=== PATIENT | female | born 1990 | race Caucasian/White ===

== ENCOUNTER 2020-01-14 11:43 | Emergency (ER) | payer OTHER, SELFPAY ==
[2020-01-14 11:50] VITALS: BP 112/84; PULSE 124; RESP 16; TEMP 38.8; O2SAT 100
--- NOTE | 2020-01-14 12:28 | ED.GENADULT ---
HPI - General Adult General Chief complaint: Upper Respiratory Infection Stated complaint: fever/swollen glands/sore throat Time Seen by Provider: 01/14/20 12:28 Source: patient and RN notes reviewed Mode of arrival: ambulatory Limitations: no limitations History of Present Illness HPI narrative: 29-year-old female presents with complaints of sore throat and fever for 1 day. Tylenol pm, last on 01/13/20 without relief. Highest fever 100.3 Fahrenheit, orally. No drooling, neck or throat swelling. Pain is bilateral. Hurts to swallow. Exacerbation factors consist of eating and drinking. No rhinorrhea or nasal congestion. No voice change. No nausea, vomiting, or abdominal pain. Tolerating liquids well. Denies chills, dyspnea, difficulty swallowing, jaw pain, dental pain, facial pain, foreign body sensation, and rash. LMP 1.5 weeks ago. Remains active. The patient reports she have not been diagnosed with COVID-19. The patient reports she is not waiting for the results of a COVID-19 lab test. The patient reports she do not have chills, weakness, or fatigue. The patient reports she do not have a new or worsening cough or shortness of breath. Denies chest pain. The patient reports she do not have any loss of taste, nausea, vomiting, abdominal pain, and diarrhea. Tolerating po intake well. Denies recent traveling. Denies concerns for COVID-19 or exposures been home with limited outdoor exposure except for essential household needs, work, and return home. At this time, patient is suspected of having COVID-19. Some parts of this dictation were generated by voice recognition software and may contain typographical and/or grammatical inaccuracies. Related Data Allergies Allergy/AdvReac Type Severity Reaction Status Date / Time morphine Allergy Intermediate Itching Verified 01/14/20 13:48 hydrocodone Allergy Unknown Nausea and Verified 01/14/20 13:48 Vomiting pertussis vaccine,adsorbed Allergy Unknown SWELLING Verified 01/14/20 13:48 WARM KNOT codeine AdvReac Mild VOMITING Verified 01/14/20 13:48 Review of Systems Review of Systems: Narrative: CONSTITUTIONAL: Complains of fever. Denies chills, sweats. EYES: Denies visual changes, redness, discharge. ENT: Denies congestion, rhinorrhea, otalgia. Complains of sore throat. CARDIOVASCULAR: Denies chest pain, palpitations, edema. RESPIRATORY: Denies dyspnea, wheezing, cough. GASTROINTESTINAL: Denies abdominal pain, nausea, vomiting, diarrhea. GENITOURINARY: Denies dysuria, hematuria, abnormal discharge. SKIN: Denies rash or itching. MUSCULOSKELETAL: Denies acute back pain, joint pain, or myalgia. NEUROLOGIC: Denies numbness or focal weakness. PSYCHIATRIC: Denies anxiety or depression. All systems reviewed & are unremarkable except as noted in HPI and below. [facility] Past Medical History Medical History (Updated 01/14/20 @ 12:43 by RUPERT Costa) Anxiety delivery delivered Morbid obesity Surgical History Surgical History (Updated 01/14/20 @ 12:42 by RUPERT Costa) H/O section X5 last February 2018 History of dilation and curettage History of tonsillectomy and adenoidectomy Family History Family History Father Emphysema of lung Heart abnormality Diabetes mellitus Hypertension Grandparent Cerebrovascular accident Social History Social History (Updated 01/14/20 @ 12:43 by RUPERT Costa) Smoking status: Never smoker Tobacco type: cigarettes Second hand tobacco smoke exposure: No (Harvinder reports family goes outside to smoke) Alcohol intake: current Substance use: never Gender identity (if verbalized by the patient): Female Spiritual care concerns: No Comments At time of signature, agree with nurse past medical, surgical, social, and family history. There is no relevant family history pertinent to the presenting complaint. Exam
[2020-01-14 13:00] VITALS: PULSE 108; TEMP 38.8
[2020-01-14] MEDS: IBUPROFEN 400 MG TABLET 800 MG PO (13:00)
[2020-01-14] MEDS: ACETAMINOPHEN 500 MG TABLET 1000 MG PO (13:00)
== END 2020-01-14 13:05 | disposition home or self-care (01) ==
PROVIDERS: Emergency Provider Nurse Practitioner Family
DX: B34.9 Viral infection, unspecified (principal); J02.0 Streptococcal pharyngitis; Z20.828 Contact with and (suspected) exposure to other viral communicable diseases; F41.9 Anxiety disorder, unspecified; E66.01 Morbid (severe) obesity due to excess calories; Z68.35 Body mass index [BMI] 35.0-35.9, adult
CPT/HCPCS: 87081; 87147; 87804; 87880; 99213; A9270; G0463

== ENCOUNTER 2020-01-14 12:53 | Outpatient (NON) | payer OTHER, SELFPAY ==
[2020-01-16 13:10] LABS: SARS-CoV-2 RNA PCR Negative
== END 2020-01-14 12:54 ==
LOC: ANHCOVIDDT 12:55
PROVIDERS: Visit Provider Nurse Practitioner Family
DX: R68.89 Other general symptoms and signs (principal); Z20.828 Contact with and (suspected) exposure to other viral communicable diseases
CPT/HCPCS: 87635; C9803; U0003

== ENCOUNTER 2020-03-11 16:14 | Emergency (ER) | payer OTHER, SELFPAY ==
[2020-03-11 16:19] VITALS: BP 140/100; PULSE 85; RESP 16; TEMP 36.9; O2SAT 100
--- NOTE | 2020-03-11 16:21 | ED.SKABFB ---
HPI - Skin/Abscess/Foreign Bdy General Chief complaint: Dental/Oral Stated complaint: pos skin abcess Time Seen by Provider: 03/11/20 16:21 Source: patient and RN notes reviewed Mode of arrival: ambulatory Limitations: no limitations History of Present Illness HPI narrative: 29 year old female who presents to [facility] care with complaints of dental pain with swelling to the left side of her lower jaw with pain.Patient has multiple areas of decay noted to her teeth with numerous broken teeth and some missing. Patient has swelling and redness of her gums around back left lower molars, #19 and #20 with left lower jaw swollen and painful. Patient states that she does not have a dentist and expresses fear of dentist with poor dental care noted. Patient denies any difficulty swallowing or breathing with no Jimmy angina noted or trismus. She reports taking Ibuprofen regularly with minimal pain decrease voiced. MD complaint: other (dental pain, dental caries #19 and #20 with facial swelling) Onset (ago): day(s) (2) Tetanus up to date: yes Location: face (left jaw) Severity: severe Severity scale (1-10): 8 Quality: aching Pain Consistency: constant Relieving factors: none Exacerbating factors: other (eating) Treatments prior to arrival: NSAID Related Data Allergies Allergy/AdvReac Type Severity Reaction Status Date / Time morphine Allergy Intermediate Itching Verified 01/14/20 13:48 hydrocodone Allergy Unknown Nausea and Verified 01/14/20 13:48 Vomiting pertussis vaccine,adsorbed Allergy Unknown SWELLING Verified 01/14/20 13:48 WARM KNOT codeine AdvReac Mild VOMITING Verified 01/14/20 13:48 Review of Systems Review of Systems: Narrative: CONSTITUTIONAL: Denies fever, chills, or sweats. EYES: Denies visual changes, redness, or discharge. ENT: Denies rhinorrhea, congestion, sore throat, or otalgia, dental pain with swollen gum around #19 an #20 molars left facial swelling CARDIOVASCULAR: Denies chest pain, palpitations, or edema. RESPIRATORY: Denies cough or dyspnea. GASTROINTESTINAL: Denies abdominal pain, nausea, vomiting, or diarrhea. GENITOURINARY: Denies dysuria or hematuria. SKIN: Denies rash or itching. MUSCULOSKELETAL: Denies back pain, joint pain, or myalgia. NEUROLOGIC: Denies headache, numbness, or weakness. PSYCHIATRIC: Denies anxiety or depression. All systems reviewed & are unremarkable except as noted in HPI and below PMFSH Past Medical History Medical History (Updated 03/13/20 @ 08:56 by Caty Henry NP) Anxiety delivery delivered Dental caries Morbid obesity Surgical History Surgical History H/O section X5 last February 2018 History of dilation and curettage History of tonsillectomy and adenoidectomy Family History Family History Father Emphysema of lung Heart abnormality Diabetes mellitus Hypertension Grandparent Cerebrovascular accident Social History Social History Smoking status: Never smoker Tobacco type: cigarettes Second hand tobacco smoke exposure: No (Harvinder reports family goes outside to smoke) Alcohol intake: current Substance use: never Gender identity (if verbalized by the patient): Female Spiritual care concerns: No Comments At time of signature, agree with nursing past medical, surgical, social and family history. There is no relevant family history pertinent to the presenting complaint Exam Narrative: Exam Narrative: GENERAL: Well-appearing, well-nourished,obese, and in mild distress. HEAD: Normocephalic, atraumatic. EYES: PERRLA and EOMI. ENT: Nares clear, no rhinorrhea or epistaxis. Mucous membranes moist.TM's normal with good light reflex, throat pink with no lesions or exudates, left jaw and lower face swollen and tender. No difficulty with swallowing or with her breath
== END 2020-03-11 16:51 | disposition home or self-care (01) ==
PROVIDERS: Emergency Provider Registered Nurse
DX: K04.7 Periapical abscess without sinus (principal); K02.9 Dental caries, unspecified; E66.01 Morbid (severe) obesity due to excess calories; Z68.42 Body mass index [BMI] 45.0-49.9, adult
CPT/HCPCS: 99213; G0463

== ENCOUNTER 2020-09-04 15:23 | Emergency (ER) | payer OTHER, SELFPAY ==
[2020-09-04 15:33] VITALS: BP 118/82; PULSE 102; RESP 16; TEMP 37.1; O2SAT 100
--- NOTE | 2020-09-04 16:10 | ED.PEDHENT ---
HPI - Pediatric HENT General Chief complaint: Ear Stated complaint: sore throat Source: patient and RN notes reviewed Limitations: no limitations History of Present Illness HPI Narrative: The obese patient, previously mostly healthy, presents with half week history of scratchy sore throat, minimal nasal congestion; Coworkers are ill with strep. She denies fever, cough, earache; no Covid vaccine, loss of taste/smell, CP, calf pain/edema, S OB, vomiting/diarrhea. Symptoms are mild, worse upon eating Related Data Allergies Allergy/AdvReac Type Severity Reaction Status Date / Time morphine Allergy Intermediate Itching Verified 01/14/20 13:48 hydrocodone Allergy Unknown Nausea and Verified 01/14/20 13:48 Vomiting pertussis vaccine,adsorbed Allergy Unknown SWELLING Verified 01/14/20 13:48 WARM KNOT codeine AdvReac Mild VOMITING Verified 01/14/20 13:48 Pediatric Review of Systems Review of Systems: General/Constitutional: No weight loss,fever Eyes: N0: Redness,discharge Ears/Nose/Throat: No: Epistaxis,ear discharge Respiratory: Denies: Hemoptysis Gastrointestinal: No Vomiting, Bleeding-rectal Skin: No Lumps, eruption Neurologic: No Focal Weakness,Sz Hematologic: Denies: Petechiae/Purpura Psychiatric: No: Suicida ideationl All Other Systems: Reviewed and Negative [facility] Past Medical History Medical History (Updated 09/04/20 @ 17:42 by Josue Garcia MD) Anxiety delivery delivered Dental caries Morbid obesity Surgical History Surgical History H/O section X5 last February 2018 History of dilation and curettage History of tonsillectomy and adenoidectomy Family History Family History Father Emphysema of lung Heart abnormality Diabetes mellitus Hypertension Grandparent Cerebrovascular accident Social History Social History Smoking status: Never smoker Tobacco type: cigarettes Second hand tobacco smoke exposure: No (Harvinder reports family goes outside to smoke) Alcohol intake: current Substance use: never Gender identity (if verbalized by the patient): Female Spiritual care concerns: No Comments At time of signature, agree with nursing past medical, surgical, social and family history. There is no relevant family history pertinent to the presenting complaint Pediatric Exam Narrative: Physical exam: General Appearance: Obese/well nourished EYE: PERRLA, Conjunctiva clear Ears: Auditory canal normal, TM normal Nose: Rhinorrhea, Mucousal erythema Mouth/Throat: MM moist, Uvula midline, Pharyngeal erythema Neck: Supple, No adenopathy Respiratory: No respiratory distress, Breath sounds equal, Clear to auscultation Cardiovascular: RRR, No JVD Musculoskeletal: Non tender, Normal strength Skin: Warm, Dry Neurological: A&O x3, CN II-XII intact Psychiatric: Normal mood, Normal affect Course Vital Signs Vital signs: Vital Signs Temperature 98.7 F 09/04/20 15:33 Pulse Rate 102 H 09/04/20 15:33 Respiratory Rate 16 09/04/20 15:33 Blood Pressure 118/82 09/04/20 15:33 Pulse Oximetry 100 09/04/20 15:33 Temperature 98.7 F 09/04/20 15:33 Pulse Rate 102 H 09/04/20 15:33 Respiratory Rate 16 09/04/20 15:33 Blood Pressure 118/82 09/04/20 15:33 Pulse Oximetry 100 09/04/20 15:33 Medical Decision Making Vital Signs Vital Signs: Vital Signs Temperature 98.7 F 09/04/20 15:33 Pulse Rate 102 H 09/04/20 15:33 Respiratory Rate 16 09/04/20 15:33 Blood Pressure 118/82 09/04/20 15:33 Pulse Oximetry 100 09/04/20 15:33 Temperature 98.7 F 09/04/20 15:33 Pulse Rate 102 H 09/04/20 15:33 Respiratory Rate 16 09/04/20 15:33 Blood Pressure 118/82 09/04/20 15:33 Pulse Oximetry 100 09/04/20 15:33 Lab Data Labs: Strep Screen
== END 2020-09-04 16:17 | disposition home or self-care (01) ==
PROVIDERS: Emergency Provider Emergency Medicine
DX: R09.81 Nasal congestion (principal); J06.9 Acute upper respiratory infection, unspecified; E66.01 Morbid (severe) obesity due to excess calories; Z68.43 Body mass index [BMI] 50.0-59.9, adult
CPT/HCPCS: 87081; 87880; 99213; G0463

== ENCOUNTER → 2020-09-09 06:52 | Outpatient (CLI) | payer OTHER, SELFPAY ==
[2020-09-09 17:38] LABS: SARS-CoV-2 RNA PCR Negative
== END ==
PROVIDERS: Visit Provider Emergency Medicine
DX: J02.9 Acute pharyngitis, unspecified (principal); Z20.822 Contact with and (suspected) exposure to COVID-19
CPT/HCPCS: C9803; U0003; U0005

== ENCOUNTER 2024-09-06 13:20 | Emergency (ER) | payer MEDICAID, SELFPAY ==
--- NOTE | ~2024-09-06 | XR_ITS ---
CHEST RADIOGRAPH, PA AND LATERAL CLINICAL HISTORY: palpitations; SOB; chest pain, DIZZINESS . COMPARISON: 11/20/2018 TECHNIQUE: PA and lateral views of the chest. FINDINGS The cardiomediastinal silhouette is unremarkable. The lungs are clear. IMPRESSION: No focal infiltrate or effusion. Reviewed, dictated and finalized at location A.
[2024-09-06 13:22] VITALS: BP 150/93; PULSE 103; RESP 20; TEMP 36.6; O2SAT 100
--- NOTE | 2024-09-06 13:23 | ECG_ITS ---
Test Date: 2024-09-06 13:27:17 Measurements Intervals [place] Rate: 100 P: 39 FL: 138 QRS: 20 QRSD: 90 T: 29 QT: 344 QTc: 445 Interpretive Statements SINUS TACHYCARDIA ABNORMAL RHYTHM ECG No previous ECG available for comparison Electronically Signed On 09-06-2024 13:38:53 CDT by Nicko Cooper M.D.
--- OUTSIDE RECORDS SUMMARY | 2024-09-06 13:28 | XMS_ITS | Clinical Summary ---
Author Organization [facility] Address [address] [place] [address] Phone Care Team Providers Care Chipper Machine Operator Name Role Phone Lyssa Alex APRN Primary Care Provider Social History Tobacco Use Types Packs/Day Years Used Date Smoking Tobacco: Never Assessed Comments Unknown Sex and Gender Information Value Date Recorded Sex Assigned at Not on file Legal Sex Female 3:09 PM [employer] Gender Identity Not on file Sexual Orientation Not on file Plan of Treatment Health Maintenance Due Date Last Done Comments Hepatitis C Virus (HCV) Screening 1989 TdaP Immunization 1989 Hepatitis B Immunization (1 of 3 - 19+ 3-dose series) 2008 Pap Smear 2010 Cervical Cancer Screening (CCS) 08/06/2019 HPV/Cotest 08/06/2019 Influenza Immunization (#1) 2023 SARS-COV-2 Immunization ( season) 2023 Respiratory Syncytial Virus (RSV) Immunization (Adult) (1 - 1-dose 75+ series) 2064 Meningococcal Immunization (ACWY) Aged Out No longer eligible based on patient's age to complete this topic Pneumococcal Immunization Combined Aged Out No longer eligible based on patient's age to complete this topic Rotavirus Immunization Aged Out No lo nger eligible based on patient's age to complete this topic Care Teams Chipper Machine Operator Relationship Specialty Start Date End Date Lyssa Alex APRN [address] [place] [address] PCP - General Family Medicine 04/19/17
--- NOTE | 2024-09-06 13:38 | ED.ARRPALP ---
HPI - Arrhythmia/Palpitations General Chief Complaint: Arrhythmia/Palpitations Stated Complaint: palpitations Time Seen by Provider: 09/06/24 17:07 Focused HPI: 34-year-old female presents to the emergency department for palpitations that started prior to arrival. Patient states she was sitting down when she began feeling fluttering in her chest and lightheaded. She states she has had this happen before but normally her symptoms improve after splashing cold water on her face and sitting in front of a fan, however they did not improve so she came to the ED. She states she is having residual ?brain fog?, weakness and pain to the left side of her chest but feels that the fluttering has largely resolved. She denies lower extremity edema, history of arrhythmia, family history of sudden cardiac , abdominal pain, shortness of breath, cough or congestion, history of VTE, hemoptysis, recent surgeries or hospitalizations. She states she has brought this up her PCP previously but was told it was anxiety. GENERAL: Well-appearing, well-nourished, and in no acute distress. HEAD: Normocephalic, atraumatic. CHEST: Clear to auscultation. ?No respiratory distress. Tenderness to left chest wall palpation HEART: Regular rate and rhythm.? NEURO: ?Alert and oriented x3. Patient screened in triage and initial orders placed.? ?Additional care and disposition to be based upon?diagnostic testing and treatment. Related Data Allergies Allergy/AdvReac Type Severity Reaction Status Date / Time morphine Allergy Intermediate Itching Verified 09/06/24 13:21 hydrocodone Allergy Unknown Nausea and Verified 09/06/24 13:21 Vomiting pertussis vaccine,adsorbed Allergy Unknown SWELLING Verified 09/06/24 13:21 WARM KNOT codeine AdvReac Mild VOMITING Verified 09/06/24 13:21 PMFSH Past Medical History Medical History (Updated 09/07/24 @ 00:00 by Manuelito Damico) Dental caries delivery delivered Anxiety Morbid obesity Surgical History Surgical History History of dilation and curettage H/O section X5 last February 2018 History of tonsillectomy and adenoidectomy Family History Family History Father Emphysema of lung Heart abnormality Diabetes mellitus Hypertension Grandparent Cerebrovascular accident Social History Social History Smoking status: Never smoker Tobacco type: cigarettes Second hand tobacco smoke exposure: No (Harvinder reports family goes outside to smoke) Alcohol intake: current Substance use: never Living arrangements: with family Occupation/Education: occupation Gender identity (if verbalized by the patient): Female Sexual Orientation (if Verbalized by the Patient): Straight or Heterosexual Spiritual care concerns: No Course Vital Signs Vital signs: Vital Signs Temperature 97.9 F 09/06/24 13:22 Pulse Rate 103 H 09/06/24 13:22 Respiratory Rate 20 09/06/24 13:22 Blood Pressure 150/93 H 09/06/24 13:22 Pulse Oximetry 100 09/06/24 13:22 Oxygen Delivery Room Air 09/06/24 13:22 Temperature 97.8 F 09/06/24 19:44 Pulse Rate 89 09/06/24 19:44 Respiratory Rate 17 09/06/24 19:44 Blood Pressure 122/68 09/06/24 19:44 Pulse Oximetry 99 09/06/24 19:44 Oxygen Delivery Room Air 09/06/24 13:22 MDM - Arrhythmia/Palpitations Lab Data 09/06/24 13:34 09/06/24 13:34 Labs: Lab Results 09/06/24 09/06/24 09/06/24 Range/Units 13:34 16:34 18:39 WBC 9.5 (4.5-10.0) K/mm3 RBC 4.98 (4.2-5.4) M/mm3 Hgb 11.7 L (12.0-15.0) g/dL Hct 37.6 (37.0-47.0) % MCV 75.5 L (80-100) fl MCH 23.5 L (26-34) pg MCHC 31.1 L (32-36) g/dl RDW 15.1 H (11.5-14.5) % Plt Count 306 (150-375) k/mm3 MPV 10.6 H (7.4-10.4) fl Immature Gran % (Auto) 0.4 (0-0.5) % Neut % (Auto) 62.3 (45.5-73.1) % Lymph % (Auto) 31.3 (18.3-44.2) % [place]key % (Auto) 3.4 (2.6-8.5) % Eos % (Auto) 2.1 (0-4.4) % Baso % (Auto) 0.5 (0.2-1.2) % Lymph # (Auto) 2.99 (0.9-3.2) K/mm3 D[place]key # (Auto) 0.3 (0.1-0.6) K/mm3 Eos # (Auto) 0.2 (0-0.3) K/mm3 Baso # (Auto) 0.1 (0.0-0.1) K/mm3 Abs Immat Gran (auto) 0.04 H (0.00-0.031) K/mm3 Absolute Neuts (auto) 5.9 (1.3-6.7) K/mm3 Absolute Nucleated RBC 0.000 (0.0-0.012) K/mm3 Nucleated RBC % 0.0 (0.0-0.2) % PT 13.0 (11.1-14.7) Seconds INR 1.0 APTT 30.2 (22.3-36.8) Seconds D-Dimer < 0.27 (<0.48) ug/mL Sodium 139 (137-145) mmol/L Potassium 4.1 (3.4-5.0) mmol/L Chloride 104 (98-107) mmol/L Carbon Dioxide 27 (22-30) mmol/L Anion Gap 8 (4-12) mmol/L BUN 14 (7-17) mg/dL Creatinine 0.71 (0.7-1.0) mg/dL Estim Creat Clear Calc 131 ml/min Estimated GFR > 60 (59 - ) Glucose 119 H (65-110) mg/dL Calcium 9.2 (8.4-10.2) mg/dL Total Bilirubin 0.3 (0.2-1.3) mg/dL AST 27 (14-36) U/L ALT 26 (6-35) U/L Alkaline Phosphatase 53 (38-126) U/L Troponin I < 0.012 < 0.012 (0.000-0.034) ng/mL NT-Pro-B Natriuret Pep 26 (19.9-100) pg/mL Total Protein 7.7 (6.3-8.2) g/dL Albumin 4.0 (3.5-5.1) g/dL Lipase 58 (23-300) U/L Discharge Plan Discharge Clinical Impression: Palpitations Patient Disposition: Home Condition: Stable Instructions: Antibiotic Form, Heart Palpitations (DC) Additional Instructions: Please follow-up with primary care physician listed below. If you develop palpitations, chest pain, or difficulty breathing please return to the ED for re-evaluation. Patient Language: Northern Irish Prescriptions: No Action azithromycin 250 mg tablet See Rx Instructions .ROUTE .COMPLEX Qty: 6 0RF Rx Instructions: take 500 mg today (day 1), then 250 mg for 4 days (days 2-5) lidocaine HCl [Lidocaine Viscous] 2 % solution 5 ml MUCOUS MEM QID PRN (Reason: pain) Qty: 100 0RF Rx Instructions: Gargle and spit Follow-up/Referrals: Josesito Morales MD [Physician] - 1 Week (Establish pcp, anxiety) UNKNOWN,DOCTOR [Non-Staff] - Stand Alone Forms: Work/School Release IP
[2024-09-06 13:43] LABS: Hematocrit 37.6 % (37.0-47.0); Hemoglobin 11.7 g/dL (12.0-15.0); Immature Granulocyte Percent A 0.4 % (0-0.5); Lymphocytes Absolute Auto 2.99 K/mm3 (0.9-3.2); Mean Corpuscular HGB Conc 31.1 g/dl (32-36); Mean Corpuscular Hemoglobin 23.5 pg (26-34); Mean Corpuscular Volume 75.5 fl (80-100); Nucleated Red Blood Cells Absolute Auto 0.000 K/mm3 (0.0-0.012); Nucleated Red Blood Cells Perc 0.0 % (0.0-0.2); Platelet Count Result 306 k/mm3 (150-375); Red Blood Count 4.98 M/mm3 (4.2-5.4); White Blood Count 9.5 K/mm3 (4.5-10.0)
[2024-09-06 14:00] LABS: Alanine Aminotransferase 26 U/L (6-35); Albumin Level 4.0 g/dL (3.5-5.1); Alkaline Phosphatase 53 U/L (38-126); Anion Gap 8 mmol/L (4-12); Aspartate Amino Transferase 27 U/L (14-36); Bilirubin,Total 0.3 mg/dL (0.2-1.3); Blood Urea Nitrogen 14 mg/dL (7-17); Calcium 9.2 mg/dL (8.4-10.2); Carbon Dioxide 27 mmol/L (22-30); Chloride 104 mmol/L (98-107); Estimated CRCL calculation 131 ml/min; Estimated Glomerular Filt Rate > 60; Glucose 119 mg/dL (65-110); Lipase 58 U/L (23-300); Potassium 4.1 mmol/L (3.4-5.0); Sodium 139 mmol/L (137-145); Total Protein 7.7 g/dL (6.3-8.2)
[2024-09-06 14:05] LABS: INR 1.0; Partial Thromboplastin Time 30.2 Seconds (22.3-36.8); Prothrombin Time 13.0 Seconds (11.1-14.7)
[2024-09-06 14:11] LABS: Troponin I < 0.012 ng/mL (0.000-0.034)
[2024-09-06 15:39] VITALS: BP 122/82; PULSE 83; RESP 18; TEMP 36.6; O2SAT 99
--- NOTE | 2024-09-06 16:22 | ECG_ITS ---
Test Date: 2024-09-06 16:28:54 Measurements Intervals [place] Rate: 78 P: 35 [place]: 134 QRS: 38 QRSD: 96 T: 33 QT: 395 QTc: 452 Interpretive Statements SINUS RHYTHM Compared to ECG 09/06/2024 13:27:17 Sinus tachycardia no longer present Electronically Signed On 09-07-2024 07:10:45 CDT by Nicko Cooper M.D.
[2024-09-06 17:09] LABS: Troponin I < 0.012 ng/mL (0.000-0.034)
--- OUTSIDE RECORDS SUMMARY | 2024-09-06 17:35 | XMS_ITS | Clinical Summary ---
Author Organization [facility] Address [address] [place] [address] Phone Care Team Providers Care Textile Chemist Name Role Phone Lyssa Alex APRN Primary Care Provider Social History Tobacco Use Types Packs/Day Years Used Date Smoking Tobacco: Never Assessed Comments Unknown Sex and Gender Information Value Date Recorded Sex Assigned at Not on file Legal Sex Female 3:09 PM BUTTON SE[employer] Gender Identity Not on file Sexual Orientation [...] age to complete this topic Care Teams Textile Chemist Relationship Specialty Start Date End Date Lyssa Alex APRN [address] [place] [address] PCP - General Family Medicine 04/19/17
[2024-09-06 17:58] VITALS: BP 113/70; PULSE 90; RESP 18; O2SAT 99
[2024-09-06 18:38] LABS: NT Pro B Type Natriuretic Pept 26 pg/mL (19.9-100)
[2024-09-06] MEDS: diazePAM INJ (*CRX) 10 MG/2 ML SYRINGE 5 MG IV PUSH (18:42)
--- NOTE | 2024-09-06 19:32 | ED_ITS ---
HPI - General Adult General Chief complaint: Arrhythmia/Palpitations Stated complaint: palpitations Time Seen by Provider: 09/06/24 17:07 Related Data Allergies Allergy/AdvReac Type Severity Reaction Status Date / Time morphine Allergy Intermediate Itching Verified 09/06/24 13:21 hydrocodone Allergy Unknown Nausea and Verified 09/06/24 13:21 Vomiting pertussis vaccine,adsorbed Allergy Unknown SWELLING Verified 09/06/24 13:21 WARM KNOT codeine AdvReac Mild VOMITING Verified 09/06/24 13:21 PMFSH Past Medical History Medical History (Updated 09/06/24 @ 19:37 by Dany East MD) Dental caries delivery delivered Anxiety Morbid obesity Surgical History Surgical History History of dilation and curettage H/O section X5 last February 2018 History of tonsillectomy and adenoidectomy Family History Family History Father Emphysema of lung Heart abnormality Diabetes mellitus Hypertension Grandparent Cerebrovascular accident Social History Social History Smoking status: Never smoker Tobacco type: cigarettes Second hand tobacco smoke exposure: No (Harvinder reports family goes outside to smoke) Alcohol intake: current Substance use: never Living arrangements: with family Occupation/Education: occupation Gender identity (if verbalized by the patient): Female Sexual Orientation (if Verbalized by the Patient): Straight or Heterosexual Spiritual care concerns: No Course Vital Signs Vital signs: Vital Signs Temperature 97.9 F 09/06/24 13:22 Pulse Rate 103 H 09/06/24 13:22 Respiratory Rate 20 09/06/24 13:22 Blood Pressure 150/93 H 09/06/24 13:22 Pulse Oximetry 100 09/06/24 13:22 Oxygen Delivery Room Air 09/06/24 13:22 Temperature 97.9 F 09/06/24 15:39 Pulse Rate 90 09/06/24 17:58 Respiratory Rate 18 09/06/24 17:58 Blood Pressure 113/70 09/06/24 17:58 Pulse Oximetry 99 09/06/24 17:58 Oxygen Delivery Room Air 09/06/24 13:22 Medical Decision Making MDM Narrative Medical decision making narrative: -Course: Patient's EKGs and labs are reviewed without significant high risk changes. Cardiac risk factors reviewed. Heart score is <4 and it iss reasonable for further risk stratification to be performed as outpatient. Pain was not sudden or maximal onset not tearing or ripping quality. No other signs or symptoms suggest aortic dissection. A low risk Wells criteria is noted. D- dimers intact will. PE is felt to be unlikely. No pneumonia seen on evaluation today. Patient is felt to be reasonable candidate for continued evaluation as an outpatient. Symptoms most consistent with an anxiety/panic attack. Patient be referred to a primary care physician. Given return precautions. -DDX includes but is not limited to: Anxiety/panic attack/ACS, pneumonia, pneumothorax, PE -Co-morbidities complicating care: Anxiety Independent EKG interpretation: Rhythm [sinus], Rate [100], [place] -[normal], [place] -[normal], QRS [narrow], QTC [normal], T waves -[negative for concerning inversions], ST Segments - [Negative for concerning elevations] Final interpretations: sinus tachycardia Vital Signs Vital Signs: Vital Signs Temperature 97.9 F 09/06/24 13:22 Pulse Rate 103 H 09/06/24 13:22 Respiratory Rate 20 09/06/24 13:22 Blood Pressure 150/93 H 09/06/24 13:22 Pulse Oximetry 100 09/06/24 13:22 Oxygen Delivery Room Air 09/06/24 13:22 Temperature 97.9 F 09/06/24 15:39 Pulse Rate 90 09/06/24 17:58 Respiratory Rate 18 09/06/24 17:58 Blood Pressure 113/70 09/06/24 17:58 Pulse Oximetry 99 09/06/24 17:58 Oxygen Delivery Room Air 09/06/24 13:22 Lab Data 09/06/24 13:34 09/06/24 13:34 Labs: Lab Results 09/06/24 09/06/24 09/06/24 Range/Units 13:34 16:34 18:39 WBC 9.5 (4.5-10.0) K/mm3 RBC 4.98 (4.2-5.4) M/mm3 Hgb 11.7 L (12.0-15.0) g/dL Hct 37.6 (37.0-47.0) % MCV 75.5 L (80-100) fl MCH 23.5 L (26-34) pg MCHC 31.1 L (32-36) g/dl RDW 15.1 H (11.5-14.5) % Plt Count 306 (150-375) k/mm3 MPV 10.6 H (7.4-10.4) fl Immature Gran % (Auto) 0.4 (0-0.5) % Neut % (Auto) 62.3 (45.5-73.1) % Lymph % (Auto) 31.3 (18.3-44.2) % [place] % (Auto) 3.4 (2.6-8.5) % Eos % (Auto) 2.1 (0-4.4) % Baso % (Auto) 0.5 (0.2-1.2) % Lymph # (Auto) 2.99 (0.9-3.2) K/mm3 [place] # (Auto) 0.3 (0.1-0.6) K/mm3 Eos # (Auto) 0.2 (0-0.3) K/mm3 Baso # (Auto) 0.1 (0.0-0.1) K/mm3 Abs Immat Gran (auto) 0.04 H (0.00-0.031) K/mm3 Absolute Neuts (auto) 5.9 (1.3-6.7) K/mm3 Absolute Nucleated RBC 0.000 (0.0-0.012) K/mm3 Nucleated RBC % 0.0 (0.0-0.2) % PT 13.0 (11.1-14.7) Seconds INR 1.0 APTT 30.2 (22.3-36.8) Seconds D-Dimer < 0.27 (<0.48) ug/mL Sodium 139 (137-145) mmol/L Potassium 4.1 (3.4-5.0) mmol/L Chloride 104 (98-107) mmol/L Carbon Dioxide 27 (22-30) mmol/L Anion Gap 8 (4-12) mmol/L BUN 14 (7-17) mg/dL Creatinine 0.71 (0.7-1.0) mg/dL Estim Creat Clear Calc 131 ml/min Estimated GFR > 60 (59 - ) Glucose 119 H (65-110) mg/dL Calcium 9.2 (8.4-10.2) mg/dL Total Bilirubin 0.3 (0.2-1.3) mg/dL AST 27 (14-36) U/L ALT 26 (6-35) U/L Alkaline Phosphatase 53 (38-126) U/L Troponin I < 0.012 < 0.012 (0.000-0.034) ng/mL NT-Pro-B Natriuret Pep 26 (19.9-100) pg/mL Total Protein 7.7 (6.3-8.2) g/dL Albumin 4.0 (3.5-5.1) g/dL Lipase 58 (23-300) U/L Discharge Plan Discharge Clinical Impression: Palpitations Patient Disposition: Home Condition: Stable Instructions: Antibiotic Form, Heart Palpitations (DC) Additional Instructions: Please follow-up with primary care physician listed below. If you develop palpitations, chest pain, or difficulty breathing please return to the ED for re-evaluation. Patient Language: Green[place]ic Prescriptions: No Action azithromycin 250 mg tablet See Rx Instructions .ROUTE .COMPLEX Qty: 6 0RF Rx Instructions: take 500 mg today (day 1), then 250 mg for 4 days (days 2-5) lidocaine HCl [Lidocaine Viscous] 2 % solution 5 ml MUCOUS MEM QID PRN (Reason: pain) Qty: 100 0RF Rx Instructions: Gargle and spit Follow-up/Referrals: Josesito Morales MD [Physician] - 1 Week (Establish pcp, anxiety) UNKNOWN,DOCTOR [Non-Staff] - Stand Alone Forms: Work/School Release IP
[2024-09-06 19:44] VITALS: BP 122/68; PULSE 89; RESP 17; TEMP 36.6; O2SAT 99
== END 2024-09-06 19:46 | disposition home or self-care (01) ==
PROVIDERS: Emergency Medicine; Emergency Provider Emergency Medicine
DX: R00.2 Palpitations (principal)
CPT/HCPCS: 36415; 71046; 80053; 83690; 83880; 84484; 85025; 85380; 85610; 85730; 93005; 96374; 99284; J3360